=== PATIENT | male | born 1970 | race Two or more races ===

== ENCOUNTER 2024-06-13 07:45 | Day surgery (SDC) | payer MEDICAID, SELFPAY ==
[2024-06-12 11:45] VITALS: BMI 33.7
--- NOTE | 2024-06-12 12:00 | EKG_ITS ---
[facility] Test Date: 2024-06-12 Pat Name: CANDI SHEPHERD Department: Room: - Gender: Male Manager Country: [place] : 1970 Requested By: Benjamin Zhong Order Number: [id number] Reading MD: Benjamin Zhong Measurements Intervals [place] Rate: 66 P: 57 MT: 151 QRS: 56 QRSD: 107 T: 64 QT: 390 QTc: 410 Interpretive Statements SINUS RHYTHM No previous ECG available for comparison /store/S0/[id number]
[2024-06-12 13:18] LABS: Basophils # (Auto) 0.1 Thou/mm3 (0.0-0.2); Basophils % (Auto) 1 % (0-2.5); Eosinophils # (Auto) 0.1 Thou/mm3 (0.0-0.5); Eosinophils % (Auto) 2 % (0-10); Hematocrit 45.3 % (41.0-53.0); Hemoglobin 16.2 g/dL (13.5-16.0); Immature Granulocytes % (Auto) 1 % (0-0); Immature Granulocytes Auto 0.03 Thou/mm3 (0.00-0.00); Lymphocytes # (Auto) 2.4 Thou/mm3 (1.0-4.8); Lymphocytes % (Auto) 38 % (10-50); Mean Corpuscular HGB Conc 35.8 g/dl (31.0-37.0); Mean Corpuscular Hemoglobin 32.9 pg (25.0-35.0); Mean Corpuscular Volume 92 fL (80-100); Monocytes # (Auto) 0.7 Thou/mm3 (0.0-0.8); Monocytes % (Auto) 11 % (0-12); Neutrophils # (Auto) 3.1 Thou/mm3 (1.8-7.7); Neutrophils % (Auto) 49 % (37-80); Nucleated Red Blood Cell % 0 /100 WBC (0); Platelet Count 314 Thou/mm3 (140-440); RDW Standard Deviation 40.8 fL (35.1-43.9); Red Blood Count 4.92 Miln/mm3 (4.50-5.90); White Blood Count 6.5 Thou/mm3 (3.8-10.6)
[2024-06-12 13:27] LABS: Anion Gap 6 (7-16); BUN/Creatinine Ratio 17 Ratio (12-20); Blood Urea Nitrogen 15 mg/dL (9-23); Calcium 9.7 mg/dL (8.3-10.6); Carbon Dioxide 28.8 mMol/L (20.0-31.0); Chloride 104 mMol/L (98-107); Creatinine (Component) 0.9 mg/dL (0.6-1.3); Estimated Creatinine Clearance 101.3 mL/min (>60); Glucose 108 mg/dL (74-106); Osmolality,Calculated 279 (275-295); Partial Thromboplastin Time 26.4 Seconds (22.0-36.0); Potassium 3.7 mMol/L (3.4-5.1); Prothrombin Time 10.7 Seconds (9.0-12.2); Sodium 139 mMol/L (136-145); eGFR > 60 See Note
[2024-06-13] VITALS (7 sets, daily range): BP systolic 137–150; BP diastolic 88–96; PULSE 75–97; RESP 13–19; TEMP 36.6–37.1; O2SAT 97–99; BMI 33.6
--- NOTE | 2024-06-13 07:58 | ESHP_ITS ---
RE: CANDI SHEPHERD : 1970 DATE OF ADMISSION: 06/13/2024 HISTORY AND PHYSICAL: The patient came to my office on 06/12/2024 for detailed preop history and physical examination. HISTORY OF PRESENTING COMPLAINT: As per history available, the patient has got pain in the right knee joint for more than a year or so. Intensity of pain is 8 to 10. There is swelling as well. Quality of life and activities of daily living is affected. The patient is unable to stand long period of time due to pain or discomfort. Unable to sleep at night due to pain. The patient has more pain in the inner side than the outer side. It is affecting his quality of life. PAST MEDICAL HISTORY: No history of diabetes mellitus, high blood pressure, asthma, seizure, chest pain, myocardial infarction. The patient has thyroid problem. PAST SURGICAL HISTORY: Nil. DRUG HISTORY: The patient is taking levothyroxine. ALLERGIES: NIL KNOWN. FAMILY HISTORY AND SOCIAL HISTORY: The patient denies smoking or drinking. PHYSICAL EXAMINATION: GENERAL: Normal built person. VITAL SIGNS: Pulse 88 per minute, blood pressure is 130/76. NECK: Soft, supple. No masses felt. Trachea is centrally placed. CARDIOVASCULAR SYSTEM: First and second heart sounds normal. No murmur heard. LUNGS: Bilateral vesicular breath sounds. CHEST: Clear. ABDOMEN: Soft. No masses felt. Bowel sounds present. EXTREMITIES: Right knee examination reveals mild swelling. There is 2+ tenderness especially along the medial joint line. Active range of motion is 0 to 120 degrees of flexion. Crepitus is present. Gaviota's test is positive. Drawer test and Ziggy tests were negative. Neurovascularly it is intact. DIAGNOSTIC DATA: MRI scan confirms torn meniscus along with degenerative joint disease changes and synovitis with increased joint fluid. ASSESSMENT AND PLAN: Since the patient is symptomatic, therefore, right knee arthroscopy was discussed and advised. Risks with anesthesia was explained and that includes, but not limited to reaction to anesthetic agents, cardiac arrest and rarely it might be fatal. Risk with operations include infection and if that happens, the patient may need further surgical procedure. Other risks include delayed healing, wound dehiscence, etc. No guarantee is given regarding outcome of procedure and/or relief of symptoms. Appropriate lab work is done. Surgery is booked for 06/13/2024. DT: 12:15:59 TT: 14:09:00 Ref: [id number] - TID: [id number]
--- NOTE | 2024-06-13 11:26 | SUR.PHASEI ---
1126 Patient arrived to recovery resting comfortably in [facility], on oxygen 2L via nasal cannula, drowsy and able to arouse with verbal prompting, breathing unlabored, vital signs stable, denies pain, dressing intact to right knee; sutures, adaptic soaked in betadine, fluffs, abd, bias roll, silk tape, stockinette, no bleeding noted, bilateral dorsalis pedis pulses present when palpated, report received from Saad MORALES and Dr. Betancourt
--- NOTE | 2024-06-13 11:28 | PD.SUROPNT ---
Date of Procedure 06/13/24 Pre Op Diagnosis 1. Torn medial meniscus right knee joint 2 torn lateral meniscus 3 degenerative joint disease changes 4. Synovitis with medial shelf and plica Post Op Diagnosis Same Procedure 1. Partial medial meniscectomy 2 partial lateral meniscectomy 3 chondroplasty 4 partial synovectomy Findings Refer dictation Procedure Description The patient was given general endotracheal anesthesia. Once satisfactory anesthesia was achieved, tourniquet was placed on upper thigh. Following that the part was thoroughly prepped and draped. After using Esmarch the tourniquet pressure was raised to 350 mmHg. A skin incision was made proximal to lateral tibial plateau and arthroscope was introduced in the usual fashion. Another a skin incision was made in suprapatellar pouch area and outlet was established. The findings were noted as below. In suprapatellar pouch area significant synovial tissue inflammation was present. Medial plica was present as well. The undersurface of patella showed grade 4 chondromalacia. The anterior femoral condyle showed grade 4 65-year-old chondromalacia. Soft tissue impingement was present. The patellar tracking was checked and found to be good. The medial compartment showed grade 3/4 chondromalacia for medial tibial plateau and medial femoral condyle. Significant areas of medial tibial plateau had degeneration of the cartilage and in some areas there was absent cartilage. The medial meniscus showed degeneration and tear of the body and posterior horn. Anterior horn was degenerated Another skin incision was made proximal to medial tibial plateau and a probe was introduced and findings were confirmed. The anterior cruciate ligament was intact. The anterior drawer test was performed and found to be good. With the help of probe the integrity of ACL was tested and found to be good. A basket was introduced in the medial compartment The lateral compartment showed intact lateral femoral condyle and tibial plateau. Lateral meniscus showed degeneration of the body and anterior horn. And torn part of medial meniscus was excised. A shaver was introduced and shaving of the posterior horn, body and the medial shelf was excised. Anterior horn of medial meniscus was performed. Soft tissue impingement was shaved off. Chondroplasty of the medial femoral condyle and medial tibial plateau was performed. The shaving of the body and anterior horn of lateral meniscus was done. The chondroplasty of the patella and and anterior femoral condyle was performed. The soft tissue impingement was shaved off. Guarded. Because of significant chondromalacia in 2 out of the 3 compartments A partial synovectomy including excision of plica was performed. Copious amount of irrigation was used to irrigate the knee joint. All the debris were removed. 3-0 Prolene was used to close the wound. About 20 mL of quarter percent Marcaine along with 10 mg of Duramorph was injected. Patient tolerated procedure well. Estimated blood loss was about 5 mL. Prognosis in this case is patient may continue having pain. In that case if the pain is better patient may be a candidate for knee replacement and patient is fully aware of that.. Patient was taken to the recovery room in good condition. Right Anesthesia GETA Pathology / specimen None Estimated Blood Loss 1 Surgeon Benjamin Payton MD Surgical Staff Operation Date: 06/13/24 10:15 Case Staff Anesthesiologist: Chris Betancourt
[2024-06-13] MEDS: fentaNYL CIT INJ 50 mCg/ML AMP 2ML IV (12:04)
--- NOTE | 2024-06-13 12:30 | SUR.PHASEII ---
1230 Patient meets discharge criteria from recovery, awake and alert, breathing unlabored, vital signs stable, denies pain, dressing intact; no bleeding noted, patient drinking 7up tolerating well, denies nausea, patient assisted with dressing into his clothing by his , patient signed limited proficiency statement for his to translate Ethiopian to him, discharge instructions given to patient and patients , signed discharge instructions. Patient given all his belongings prior to discharge, transported via wheelchair and left in a private vehicle.
== END 2024-06-13 12:30 | disposition home or self-care (01) ==
PROVIDERS: PCP Family Medicine; Referring Provider Orthopaedic Surgery; Visit Provider Orthopaedic Surgery
PROC: (CPT 29870; principal; 2024-06-13 10:00)
DX: S83.241A Other tear of medial meniscus, current injury, right knee, initial encounter (principal); M65.90 Unspecified synovitis and tenosynovitis, unspecified site; S83.281A Other tear of lateral meniscus, current injury, right knee, initial encounter; M17.11 Unilateral primary osteoarthritis, right knee; Z01.810 Encounter for preprocedural cardiovascular examination
CPT/HCPCS: 29875; 29880; 36415; 80048; 85025; 85610; 85730; 93005; A4217; A4649; J1100; J2274; J2704; J2765; J3010; J3490; J0665; J2270

== ENCOUNTER 2024-08-14 11:00 | Outpatient (RCR) | payer MEDICAID, SELFPAY ==
--- NOTE | 2024-08-04 09:55 | PTNOTE_ITS ---
PT OP Initial Eval Patient Information Outpatient Physical Therapy Treatment Date: 08/04/24 Visit Reasons: RT knee arthroscopy Medical Diagnosis: S83.241D S83.281D M24.853 Treatment Dx #1: R knee pain Start of Care: 08/04/24 Date of Onset: 06/13/24 Smoking Status Smoking Status: Never smoker Initial Assessment Subjective: Pt is 53 yr old male s/p R knee A/S about 6 weeks ago. He is ambulating ? without assistive device. 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 He is not working ? now during rehab. Pt reports he is not able to kneel. He can walk about 40 mins with pain and it swells at night. ? PMH: B knee OA ? Imaging: with provider ? Pt. goal: to not have knee pain in order to work Objective: R knee AROM: ? Flexion: 120 deg ? Extension: -5 deg ? PROM: 120 deg flexion ? SLR: 55 deg with slight extensor lag ? Strength: R quads 4/5 limited by patella compression pain, hamstrings 4/5?R Antalgic gait pattern with decreased stance time on Assessment: Pt presentation consistent with post op L knee A/S with decreased ROM, ? strength and WB tolerance. Pt ambulates with decreased WB on L. Pt has ? pain at first resistance into knee flexion that limits end-range ? tolerance and PROM. Pt can SLR slowly and has slight extensor lag. Pt requires skilled therapy in order to improve strength and ROM and has good rehab potential with attainable functional improvement. Eval followed by HEP with?materials. Short Term and Physical Fitness Teacher Goals 1. Independent with HEP ? 2. Improved knee extension to full ? 3. Improved quad and hamstring strength to 4+/5 ? 4. Improved ambulatory tolerance to 60 mins with symmetrical ? gait pattern and <=3/10 knee pain Treatment Plan 1. Manual therapy ? 2. Therex ? 3. Modalities as indicated, moist heat, ice, TENS Frequency and Duration: 2x a week for 8 weeks Certification Dates: 08/04/24 to 10/30/24 Procedure Charges OP PT Eval Mod Complex 30 minutes: Yes
--- NOTE | 2024-08-06 14:42 | PT.ODAYNRPT ---
PT Outpatient Daily Note OP Daily Note Outpatient Physical Therapy Treatment Date: 08/06/24 Visit Reasons: RT knee arthroscopy Subjective: Same as evaluation Objective: See F/S for therex MHP x7' during low load prolonged stretching into extension Assessment: Improved knee extension to full today. Good flexion to 120 deg. Plan: Continue per POC Length of Time (minutes) of Treatment: 30 Minutes Procedure Charges Therapeutic Exercise 30 minutes: Yes
--- NOTE | 2024-08-11 13:26 | PT.ODAYNRPT ---
PT Outpatient Daily Note OP Daily Note Outpatient Physical Therapy Treatment Date: 08/11/24 Visit Reasons: RT knee arthroscopy Subjective: Overall better Objective: See F/S for therex Assessment: Improved knee extension to full today. Good flexion to 120 deg. Plan: Continue per POC Length of Time (minutes) of Treatment: 30 Minutes Procedure Charges Therapeutic Exercise 30 minutes: Yes
--- NOTE | 2024-08-14 12:08 | PT.ODAYNRPT ---
PT Outpatient Daily Note OP Daily Note Outpatient Physical Therapy Treatment Date: 08/14/24 Visit Reasons: RT knee arthroscopy Subjective: Pt reports R knee continues to be painful limiting pt from performing some ADL's and other tasks. Objective: Please see flow sheet for ther ex list. Assessment: Progressing interventions per post op protocol and pt tolerance. Plan: Assess response to treatment. Length of Time (minutes) of Treatment: 30 Minutes Procedure Charges Therapeutic Exercise 30 minutes: Yes
== END 2024-08-29 23:59 | disposition home or self-care (01) ==
LOC: CPTX 11:00
PROVIDERS: PCP Orthopaedic Surgery; Referring Provider Orthopaedic Surgery; Visit Provider Orthopaedic Surgery
DX: M25.561 Pain in right knee (principal); S83.241D Other tear of medial meniscus, current injury, right knee, subsequent encounter; S83.281D Other tear of lateral meniscus, current injury, right knee, subsequent encounter; X58.XXXD Exposure to other specified factors, subsequent encounter; M24.661 Ankylosis, right knee
CPT/HCPCS: 97110; 97162

== ENCOUNTER 2024-12-26 08:55 | Day surgery (SDC) | payer MEDICAID, SELFPAY ==
--- NOTE | 2024-12-25 09:04 | EKG_ITS ---
[facility] Test Date: 2024-12-25 Pat Name: CANDI SHEPHERD Department: Room: - Gender: Male Educational Coordinator: [place]ON[place] : 1970 Requested By: Benjamin Zhong Order Number: [id number] Reading MD: Benjamin Zhong Measurements Intervals [place] Rate: 57 P: 52 ND: 152 QRS: 55 QRSD: 102 T: 47 QT: 406 QTc: 396 Interpretive Statements SINUS BRADYCARDIA Compared to ECG 06/12/2024 12:17:39 Sinus rhythm no longer present /store/S0/[id number]/[id number].pdf
[2024-12-25 09:06] VITALS: BMI 37.0
[2024-12-25 10:14] LABS: Basophils # (Auto) 0.1 Thou/mm3 (0.0-0.2); Basophils % (Auto) 1 % (0-2.5); Eosinophils # (Auto) 0.2 Thou/mm3 (0.0-0.5); Eosinophils % (Auto) 3 % (0-10); Hematocrit 42.7 % (41.0-53.0); Hemoglobin 15.8 g/dL (13.5-16.0); Immature Granulocytes % (Auto) 1 % (0-0); Immature Granulocytes Auto 0.04 Thou/mm3 (0.00-0.00); Lymphocytes # (Auto) 2.8 Thou/mm3 (1.0-4.8); Lymphocytes % (Auto) 42 % (10-50); Mean Corpuscular Hemoglobin 33.3 pg (25.0-35.0); Mean Corpuscular Volume 90 fL (80-100); Monocytes # (Auto) 0.8 Thou/mm3 (0.0-0.8); Monocytes % (Auto) 12 % (0-12); Neutrophils # (Auto) 2.8 Thou/mm3 (1.8-7.7); Neutrophils % (Auto) 42 % (37-80); Nucleated Red Blood Cell % 0 /100 WBC (0); Platelet Count 295 Thou/mm3 (140-440); RDW Standard Deviation 40.1 fL (35.1-43.9); Red Blood Count 4.74 Miln/mm3 (4.50-5.90); White Blood Count 6.6 Thou/mm3 (3.8-10.6)
[2024-12-25 10:22] LABS: INR 0.9 (0.9-1.3); Partial Thromboplastin Time 27.1 Seconds (22.0-36.0); Prothrombin Time 10.4 Seconds (9.0-12.2)
[2024-12-25 10:25] LABS: Anion Gap 9 (7-16); BUN/Creatinine Ratio 11 Ratio (12-20); Blood Urea Nitrogen 9 mg/dL (9-23); Calcium 9.3 mg/dL (8.3-10.6); Carbon Dioxide 27.5 mMol/L (20.0-31.0); Chloride 103 mMol/L (98-107); Creatinine (Component) 0.8 mg/dL (0.6-1.3); Glucose 109 mg/dL (74-106); Osmolality,Calculated 277 (275-295); Potassium 4.2 mMol/L (3.4-5.1); Sodium 139 mMol/L (136-145); eGFR > 60 See Note
--- NOTE | 2024-12-25 13:45 | ESHP_ITS ---
RE: CANDI SHEPHERD : 1970 DATE OF ADMISSION: 12/26/2024 HISTORY OF PRESENT ILLNESS: The patient came to my office on 12/25/2024 for detailed preop history and physical examination. The patient presented to me with history of pain, swelling, clicking, and locking of the left knee joint. Pain is quite bad. The patient graded intensity of pain to be 8-9/10. The patient is unable to sleep. The patient limps whenever he walks. The patient wants something to be done about it. PAST MEDICAL HISTORY: The patient denies history of diabetes mellitus, high blood pressure, asthma, seizure, chest pain, or myocardial infarction. The patient has history of thyroid problem. PAST SURGICAL HISTORY: Right knee arthroscopy done in 06/2024. DRUG HISTORY: The patient is taking levothyroxine. ALLERGIES: NIL KNOWN. FAMILY HISTORY AND SOCIAL HISTORY: The patient denies smoking, drinking, and is working. PHYSICAL EXAMINATION: GENERAL: Normal built person. VITAL SIGNS: Pulse 64 per minute, blood pressure is 120/76. NECK: Soft. Supple. No masses felt. Trachea is centrally placed. CARDIOVASCULAR SYSTEM: First and second heart sounds normal. No murmur heard. LUNGS: Bilateral vesicular breath sounds. CHEST: Clear. ABDOMEN: Soft. No masses felt. Bowel sounds present. EXTREMITIES: Left knee examination revealed mild swelling. There is 2+ tenderness. Active range of motion 0 to 115 degrees of flexion. Crepitus is present. Gaviota's test is positive. Drawer test and Ziggy's tests were negative. The patient walks with a limp. DIAGNOSTIC DATA: MRI scan was obtained, which revealed torn meniscus, DJD, and synovitis with increased joint fluid. ASSESSMENT AND PLAN: Since the patient is symptomatic, therefore, a left knee arthroscopy was discussed and advised. Risk with anesthesia was explained and that includes, but not limited to reaction to anesthetic agents, cardiac arrest and rarely, it might be fatal. Risk with operation includes infection and if that happens, the patient may need further surgical procedure. If one has grade 3 or grade 4 chondromalacia, there is a possibility that the patient may continue having short and/or long-term pain and the patient is fully aware of that. Accordingly, surgery is booked for 12/26/2024. Appropriate lab work was done. DT: 12:03:44 TT: 13:43:00 Ref: [id number] - TID: [id number]
--- NOTE | 2024-12-25 14:23 | SUR.PREOP ---
Pt notified to come in at 929.
[2024-12-26] VITALS (8 sets, daily range): BP systolic 134–165; BP diastolic 80–96; PULSE 74–99; RESP 12–17; TEMP 36.4–37.1; O2SAT 95–100; BMI 36.5
--- NOTE | 2024-12-26 12:26 | PD.SUROPNT ---
Date of Procedure 12/26/24 Pre Op Diagnosis 1. Torn medial meniscus left knee joint 2. Torn lateral meniscus 3. Degenerative joint disease changes 4. Synovitis with medial shelf Post Op Diagnosis Same Procedure 1. Partial medial meniscectomy 2. Partial lateral meniscectomy 3. Chondroplasty 4. Partial synovectomy including excision of medial shelf Findings Refer dictation Procedure Description The patient was given general endotracheal anesthesia. Once satisfactory anesthesia was achieved, tourniquet was placed on left upper thigh. Following that the part was thoroughly prepped and draped. After using Esmarch the tourniquet pressure was raised to 350 mmHg. A skin incision was made proximal to lateral tibial plateau and arthroscope was introduced in the usual fashion. Another a skin incision was made in suprapatellar pouch area and outlet was established. The findings were noted as below. In suprapatellar pouch area significant synovial tissue inflammation was present. Medial 3 was shelfpresent as well. The undersurface of patella showed grade. Chondromalacia. The anterior femoral condyle showed grade 3 chondromalacia. Soft tissue impingement was present. The patellar tracking was checked and found to be good. The medial compartment showed grade 3 chondromalacia for medial tibial plateau. Some areas showed grade IV chondromalacia as they were denuded of cartilage. Medial femoral condyle showed grade III chondromalacia. The medial meniscus showed degeneration and tear of the anterior horn and body with the help of probe the integrity of ACL was tested and found to be good. Another skin incision was made proximal to medial tibial plateau and a probe was introduced and findings were confirmed. The anterior cruciate ligament was intact. The anterior drawer test was performed and found to be good. The lateral compartment showed grade III chondromalacia intact lateral femoral condyle and grade III/IV chondromalacia of anterior tibial plateau. Lateral meniscus showed degeneration of the body and anterior horn. A basket was introduced and torn part of the medial meniscus excised. A shaver was introduced and shaving of the anterior horn of medial meniscus was performed. Soft tissue impingement was shaved off. Chondroplasty of the medial femoral condyle and medial tibial plateau was performed. A basket was introduced on the lateral compartment and torn part of the lateral meniscus was excised. The shaving of the body and anterior horn of lateral meniscus was done. The chondroplasty of the patella and and anterior femoral condyle was performed. The soft tissue impingement was shaved off. A partial synovectomy including excision of plica was performed. Copious amount of irrigation was used to irrigate the knee joint. All the debris were removed. 3-0 Prolene was used to close the wound. About 20 mL of quarter percent Marcaine along with 10 mg of Duramorph was injected. Patient tolerated procedure well. Estimated blood loss was about 5 mL. Prognosis in this case is guarded. Because of significant chondromalacia and grade IV chondromalacia in the medial tibial plateau there is possibility patient may continue having short and long-term pain. If the pain is unbearable patient may be a candidate for knee replacement and patient is fully aware of that. Patient was taken to the recovery room in good condition. Anesthesia GETA and other Pathology / specimen None Estimated Blood Loss 2 Surgeon Benjamin Payton MD Surgical Staff Operation Date: 12/26/24 11:45 Case Staff Anesthesiologist: Chris Betancourt
--- NOTE | 2024-12-26 12:30 | SUR.PHASEI ---
1230: Pt. AAOx4, vitals stable, breathing unlabored, no complaint of pain or nausea, dressing to left knee CDI, no active bleed noted, pt. able to wiggle bilateral feet, bilateral dorsalis pedis pulses strong and regular, report received from MD Betancourt and Ana MORALES.
[2024-12-26] MEDS: fentaNYL CIT INJ 50 mCg/ML AMP 2ML IVP ×2 (12:44→12:54)
--- NOTE | 2024-12-26 13:30 | SUR.PHASEII ---
1330: Pt. AAOx4, vitals stable, breathing unlabored, no complaint of pain or nausea, dressing to left knee CDI, no active bleed noted, pt. tolerated sips of water well, pt. ambulated to wheelchair with steady gait and no assist, no complications. Gave discharge instructions to the pt. and his ride, both verbalized understanding and had no further questions. Pt. left with all personal belongings.
== END 2024-12-26 13:30 | disposition home or self-care (01) ==
PROVIDERS: PCP Family Medicine; Referring Provider Orthopaedic Surgery; Visit Provider Orthopaedic Surgery
PROC: (CPT 29870; principal; 2024-12-26 11:30)
DX: S83.242A Other tear of medial meniscus, current injury, left knee, initial encounter (principal); M65.90 Unspecified synovitis and tenosynovitis, unspecified site; Z01.810 Encounter for preprocedural cardiovascular examination; S83.281A Other tear of lateral meniscus, current injury, right knee, initial encounter; M17.12 Unilateral primary osteoarthritis, left knee
CPT/HCPCS: 29875; 29880; 36415; 80048; 85025; 85610; 85730; 93005; A4217; A4649; J1100; J2274; J2704; J2765; J3010; J3490; J0665; J2270

== ENCOUNTER → 2025-03-19 | Outpatient (CLI) | payer MEDICAID, SELFPAY ==
--- NOTE | 2025-03-19 15:19 | XR_ITS ---
Examination: Bilateral knees 6 views Technique one AP oblique lateral each knee total 6 views Date and time: March 19, 2025 1536 hours INDICATIONS: Bilateral knee pain beginning 5 days ago. FINDINGS: Mild to moderate right knee tricompartment osteoarthritis Moderate to advanced left knee tricompartment osteoarthritis, including advanced narrowing medial joint space left knee IMPRESSION:: Osteoarthritis as above, including advanced narrowing medial joint space left knee
== END | disposition home or self-care (01) ==
LOC: SDIM 15:10
PROVIDERS: PCP Physician Assistant; Referring Provider Orthopaedic Surgery; Visit Provider Orthopaedic Surgery
DX: M17.0 Bilateral primary osteoarthritis of knee (principal); M25.862 Other specified joint disorders, left knee
CPT/HCPCS: 73565